=== PATIENT | male | born 1970 | race Caucasian/White ===

== ENCOUNTER → 2020-03-14 10:24 | Outpatient (BNVA) | payer OTHER, SELFPAY | PROVIDERS: PCP Internal Medicine; Referring Provider Internal Medicine; Visit Provider Internal Medicine Gastroenterology | DX: K22.10 Ulcer of esophagus without bleeding (principal) | CPT/HCPCS: 99212 ==

== ENCOUNTER 2020-06-16 12:48 | Day surgery (SDC) | payer OTHER, SELFPAY ==
--- NOTE | 2020-06-15 09:59 | P.CONAN_ITS ---
Documented by User: Shana Kruger 06/15/20 09:59 HPI - Anesthesia Eval Consult details Narrative: 50yo M for Upper Endoscopy [facility] Past Medical History Medical History (Updated 06/16/20 @ 14:55 by Alma Delia Yip) History of Yan's esophagus SUKHWINDER on CPAP Right knee pain Sleep disorder Family History Family History Father History of cancer Mother Hx of diabetes mellitus Surgical History Surgical History History of colonoscopy Hx of endoscopy Social History Social History Alcohol intake: never Smoking Status: Never smoker Use of substances other than those prescribed or required for medical reasons: No Advance Directives: No Advance Directives Information Provided: Yes Meds Allergies Allergy/AdvReac Type Severity Reaction Status Date / Time No Known Allergies Allergy Verified 06/16/20 13:56 Home Medications Medication Instructions Recorded Confirmed Type famotidine 1 tab PO BEDTIME 05/05/20 05/05/20 History baclofen 1 tab PO TID 06/16/20 06/16/20 History doxepin 1 cap PO BEDTIME 06/16/20 06/16/20 History Exam Exam Date and Time: June 15, 2020 0959 Height,Weight and Vital Signs: Height 5 ft 7 in Assessment and Plan Assessment Anesthesia Assessment: Chart Reviewed Documented by User: Alma Delia Yip 06/16/20 15:02 [facility] Past Medical History Medical History (Updated 06/16/20 @ 14:55 by Alma Delia Yip) History of Yan's esophagus SUKHWINDER on CPAP Right knee pain Sleep disorder Family History Family History Father History of cancer Mother Hx of diabetes mellitus Family history of problems with anesthesia: No Surgical History Surgical History History of colonoscopy Hx of endoscopy History of Problems with Anesthesia: No Social History Social History Alcohol intake: never Smoking Status: Never smoker Use of substances other than those prescribed or required for medical reasons: No Advance Directives: No Advance Directives Information Provided: Yes Meds Allergies Allergy/AdvReac Type Severity Reaction Status Date / Time No Known Allergies Allergy Verified 06/16/20 13:56 Home Medications Medication Instructions Recorded Confirmed Type famotidine 1 tab PO BEDTIME 05/05/20 05/05/20 History baclofen 1 tab PO TID 06/16/20 06/16/20 History doxepin 1 cap PO BEDTIME 06/16/20 06/16/20 History Exam Height,Weight and Vital Signs: Vital Signs Temp Pulse Resp BP Pulse Ox 06/16/20 13:20 97.4 F 81 18 144/87 H 97 Airway Mallampati Class: IV TM Dist: >3cm Neck ROM: Full Heart: RRR Lungs: CTAB Assessment and Plan Assessment Anesthesia Assessment: Anesthesia Plan Discussed and Chart Reviewed Final Anesthetic Review NPO: Yes ASA Class: III Final Preanesthetic Review: No Changes in Pt Med Stat, Meds/Allgs Chart Reviewed, Consent Obtained/Reviewed and Anes Risks/Benef Reviewed Patient Risk: Intermediate Procedure Risk: Low Assessment/Block/Sedation in SS: Assess/Block/Sedation-SS Anesthetic Plan Anesthetic Plan: MAC: Disposition: Standard PACU
--- NOTE | 2020-06-16 13:18 | MHC.SHP ---
Pre-Procedural Eval Section B Chief Complaint: Ulcer of Esophagus Relevant Family History (Specify if Yes): No Relevant Social History: None Present Medications: see Short Stay Collaborative assessment Medical History: Significant History (obesity, esophagitis) History of Previous Operations: Relevant previous surgery/procedure and date(s) (EGD,colonoscopy) Allergies: Allergies Allergy/AdvReac Type Severity Reaction Status Date / Time No Known Allergies Allergy Verified 03/14/20 10:25 Review of Systems Sugical H&P ROS: Negative: Constitution, Cardiovascular, Respiratory, Neurological, Psychiatric, Hem-Onc, Allergic/Immunologic, Gastrointestinal, Genitourinary, Musculoskeletal, Integumentary, Endocrine and Eyes/Ears/Nose/Throat Exam Surgical H&P Exam: Normal: HEENT, Normal: Heart, Normal: Lungs, Normal: Extremities, Normal: Abdomen, Normal: Skin and Normal: Neurological Plan Diagnosis/Plan: Unchanged I have reviewed the history and physical and performed a pertinent physical examination on my patient. No changes have occurred unless specified.
--- NOTE | 2020-06-16 13:19 | PM.OP ---
Brief Operative Note Date of Service: 06/16/20 Pre-op diagnosis: hx of barretts, esophagitis Post-op diagnosis: same Procedure: see op note Surgeon: Muna Rocha MD Anesthesia: MAC Estimated blood loss (mL): 0 Condition: stable Disposition: PACU
--- NOTE | 2020-06-16 13:19 | W.PM.OPN ---
Operative Note Operative Note Date of Service: 06/16/20 Narrative: Procedure Description: EGD FLEXIBLE TRANSORAL UPPER GASTROINTESTINAL ENDOSCOPY UPPER ENDOSCOPY Consent: Indications for the procedure and potential complications of bleeding, perforation, reaction to medications and missed diagnosis were discussed with the patient and informed consent was obtained. Instrument: Olympus GIF H 190 J mid size upper endoscope Monitoring: Vital signs and clinical assessment, continuous EKG monitoring, Pulse oximetry, Carbon Dioxide monitoring and blood pressure monitoring were done throughout the procedure. Procedure: The patient was placed in the left lateral decubitis position and pre-procedure medications were administered and a bite block was placed. The endoscope was inserted into the mouth and advanced under direct vision to the third part of duodenum. A careful inspection was made as the upper endoscope was withdrawn including a retroflexed examination of the proximal stomach; Findings and interventions are described below. Findings: Larynx:normal Esophagus: GE junction at 39 cm, diaphragm hiatus at 41 cm, small sliding hiatal hernia noted, salmon ping tissue at GEJ consistent with mcmahon esophagus noted, slightly inflammed with superficial ulceration noted at the 9 o'clock position, bx taken Stomach: Normal gastric mucosa. Grade 2 flap valve on retroflexed examination of the cardia. Duodenum: Normal bulb and descending duodenum Intervention: Biopsies as noted above Impression/Findings: Ulcerated esophagitis Barretts esophagus small hiatal hernia PLAN: confirm compliance with PPI, if taking then may change to another PPI, might add carafate encourage diet, lifestyle modification, weight loss repeat EGD in 3-6 months surgery may be another option for him with fundoplication or magnetic sphincter if he can lose some weight finally bariatric surgery with gastric bypass may help, sleeve would probably exacerbate reflux unfortunately
[2020-06-16 13:20] VITALS: BP 144/87; PULSE 81; RESP 18; TEMP 36.3; O2SAT 97; BMI 47.0
[2020-06-16] MEDS: Lactated Ringers 1,000 ML 100 ML IVCONT (13:48)
[2020-06-16 14:40] VITALS: BP 134/85; PULSE 92; RESP 16; TEMP 36.1; O2SAT 98
[2020-06-16 14:55] VITALS: BP 132/77; PULSE 81; RESP 17; TEMP 36.2; O2SAT 96
--- NOTE | 2020-06-17 09:24 | HO.POSTANES ---
Post Anesthesia Evaluation Post Anesthesia Evaluation Anesthesia: Monitored Mental Status: Awake Pain Control: Satisfactory Nausea/Vomiting: None Hydration: Adequate Anesthesia-Related Issues: No Anes. Related Issues
== END 2020-06-16 15:57 | disposition home or self-care (01) ==
PROVIDERS: PCP Internal Medicine; Visit Provider Internal Medicine Gastroenterology
PROC: 0DJ08ZZ Inspection of Upper Intestinal Tract, Via Natural or Artificial Opening Endoscopic (ICD-10-PCS; CPT 43235; principal; 2020-06-16 13:50)
DX: K22.10 Ulcer of esophagus without bleeding (principal); Z87.19 Personal history of other diseases of the digestive system; K44.9 Diaphragmatic hernia without obstruction or gangrene; G47.33 Obstructive sleep apnea (adult) (pediatric); Z79.899 Other long term (current) drug therapy
CPT/HCPCS: 43239; 88305; J3010

== ENCOUNTER → 2020-07-15 11:38 | Outpatient (BNVA) | payer OTHER, SELFPAY | PROVIDERS: PCP Internal Medicine; Visit Provider Internal Medicine Gastroenterology ==

== ENCOUNTER → 2020-08-17 09:17 | Outpatient (BNVA) | payer OTHER, SELFPAY | PROVIDERS: PCP Internal Medicine; Visit Provider Dietitian, Registered ==

== ENCOUNTER 2020-09-28 | Outpatient (REF) | payer OTHER, SELFPAY ==
[2020-09-22 11:42] VITALS: BMI 49.3
--- NOTE | 2020-09-27 10:13 | P.CONAN_ITS ---
HPI - Anesthesia Eval Consult details Narrative: 50yo M for Upper Endoscopy s/p EGD with TIVA 05/2020 [facility] Active Problems Active Problems: All Active Problems (Updated 07/15/20 @ 12:01 by Muna Rocha MD) Erosive esophagitis (Acute) Obesity (Acute) Sleep disorder (Acute) Right knee pain (Acute) SUKHWINDER on CPAP (Acute) Past Medical History Medical History History of Yan's esophagus SUKHWINDER on CPAP Right knee pain Sleep disorder Family History Family History Father History of cancer Mother Hx of diabetes mellitus Family history of problems with anesthesia: No Surgical History Surgical History (Updated 09/22/20 @ 11:41 by Prema Nam) History of colonoscopy History of esophagogastroduodenoscopy (EGD) Hx of endoscopy History of Problems with Anesthesia: No Social History Social History (Updated 07/15/20 @ 11:37 by María Marvin CMA) Household Members: None Alcohol intake: never Smoking Status: Never smoker Current occupational status: employed Current occupation: self-employed Meds Allergies Allergy/AdvReac Type Severity Reaction Status Date / Time No Known Allergies Allergy Verified 09/22/20 11:40 Home Medications Medication Instructions Recorded Confirmed Last Taken Type famotidine 1 tab PO BEDTIME 05/05/20 09/22/20 Unknown History baclofen 1 tab PO TID 06/16/20 09/22/20 Unknown History doxepin 1 cap PO BEDTIME 06/16/20 09/22/20 Unknown History Exam Exam Date and Time: September 27, 2020 1013 Height,Weight and Vital Signs: Height 5 ft 7 in Weight 142.882 kg Assessment and Plan Assessment Anesthesia Assessment: Chart Reviewed
== END 2020-09-28 00:01 ==
LOC: HO.PAT
PROVIDERS: PCP Internal Medicine; Visit Provider Dietitian, Registered
DX: E66.9 Obesity, unspecified (principal); K22.10 Ulcer of esophagus without bleeding; G47.33 Obstructive sleep apnea (adult) (pediatric); Z99.89 Dependence on other enabling machines and devices
CPT/HCPCS: 97803

== ENCOUNTER → 2020-10-11 08:25 | Outpatient (BNVA) | payer OTHER, SELFPAY | PROVIDERS: PCP Internal Medicine; Visit Provider Internal Medicine Gastroenterology ==

== ENCOUNTER → 2021-02-14 10:16 | Outpatient (BNVA) | payer OTHER, SELFPAY | PROVIDERS: PCP Internal Medicine; Visit Provider Internal Medicine Gastroenterology ==

== ENCOUNTER 2023-05-15 12:03 | Day surgery (SDC) | payer OTHER, SELFPAY ==
--- NOTE | 2023-05-15 12:32 | HO.ANESPROP2 ---
[facility] Active Problems Active Problems: All Active Problems (Updated 01/31/23 @ 06:52 by Muna Rocha MD) Arthritis of knee (Acute) Obesity (Acute) Erosive esophagitis (Acute) Sleep disorder (Acute) Right knee pain (Acute) SUKHWINDER on CPAP (Acute) Past Medical History Medical History (Updated 01/31/23 @ 06:52 by Muna Rocha MD) ADHD (attention deficit hyperactivity disorder) Arthritis Sleep disorder Right knee pain SUKHWINDER on CPAP History of Yan's esophagus Family History Family History Father History of cancer Mother Hx of diabetes mellitus Family history of problems with anesthesia: No Surgical History Surgical History (Updated 03/21/21 @ 11:04 by Sasha Lund, LALITHA) History of esophagogastroduodenoscopy (EGD) History of esophagogastroduodenoscopy (EGD) Hx of endoscopy History of colonoscopy History of Problems with Anesthesia: No Social History Social History (Updated 03/21/21 @ 11:05 by Sasha Lund RN) Household Members: None Alcohol intake: never Patient Tobacco Use Status: Never used Tobacco Advance Directives: No Advance Directives Information Provided: Yes Current occupational status: employed Current occupation: self-employed Meds Allergies Allergy/AdvReac Type Severity Reaction Status Date / Time No Known Allergies Allergy Verified 03/21/21 11:05 Home Medications Medication Instructions Recorded Confirmed Last Taken Type baclofen 20 mg tablet 1 tab PO TID 06/16/20 03/21/21 Unknown History doxepin 10 mg capsule 1 cap PO BEDTIME 06/16/20 03/21/21 Unknown History dextroamphetamine-amphetamine ER 1 cap PO QAM 10/11/20 03/21/21 Unknown History 10 mg 24hr capsule,extend release fluticasone propionate 50 1 spray intranasal BID PRN Nasal 10/11/20 03/21/21 Unknown History mcg/actuation nasal Congestion spray,suspension gabapentin 300 mg capsule 300 mg PO BEDTIME PRN Pain 10/11/20 03/21/21 Unknown History lidocaine HCl 2 % mucosal solution 15 ml PO Q3H PRN 10/11/20 Unknown History ibuprofen 200 mg tablet (Advil) 200 mg PO Q6H PRN Pain 03/21/21 03/21/21 Unknown History Exam Airway Mallampati Class: III TM Dist: >3cm Neck ROM: Full Heart: rrr Lungs: cta Assessment and Plan Assessment Anesthesia Assessment: Anesthesia Plan Discussed and Chart Reviewed Final Anesthetic Review Family History of Problems with Anesthesia: No History of Problems with Anesthesia: No NPO: Yes ASA Class: III Final Preanesthetic Review: No Changes in Pt Med Stat, Meds/Allgs Chart Reviewed and Consent Obtained/Reviewed Patient Risk: Intermediate Procedure Risk: Low Anesthetic Plan Anesthetic Plan: MAC: Disposition: Standard PACU
[2023-05-15 13:02] VITALS: BP 153/97; PULSE 76; RESP 18; TEMP 36.1; O2SAT 95
[2023-05-15 13:05] VITALS: BMI 51.4
[2023-05-15] MEDS: Lactated Ringers 1,000 ML 50 ML IVCONT (13:09)
--- NOTE | 2023-05-15 13:28 | P.HPSUR_ITS ---
Pre-Procedural Eval Section A Date of Service: 05/15/23 Section B Chief Complaint: Ulcer of esophagus without bleeding Relevant Family History (Specify if Yes): No Relevant Social History: None Present Medications: see Short Stay Collaborative assessment Medical History: Significant History (ADHD (attention deficit hyperactivity disorder) Arthritis Sleep disorder Right knee pain SUKHWINDER on CPAP History of Yan's esophagus) History of Previous Operations: Relevant previous surgery/procedure and date(s) ( History of esophagogastroduodenoscopy (EGD) History of esophagogastroduod enoscopy (EGD) Hx of endoscopy History of colonoscopy) Allergies: Allergies Allergy/AdvReac Type Severity Reaction Status Date / Time No Known Allergies Allergy Verified 03/21/21 11:05 Review of Systems Sugical H&P ROS: Negative: Constitution, Cardiovascular, Respiratory, Neuro logical, Psychiatric, Hem-Onc, Allergic/Immunologic, Gastrointestinal, Genitourinary, Musculoskeletal, Integumentary, Endocrine and Eyes/Ears/Nose/Throat Exam Surgical H&P Exam: Normal: HEENT, Normal: Heart, Normal: Lungs, Normal: Extremities, Normal: Abdomen, Normal: Skin and Normal: Neurological Plan Diagnosis/Plan: Unchanged I have reviewed the history and physical and performed a pertinent physical examination on my patient. No changes have occurred unless specified. Time Spent With Patient Time: Total time managing care of this patient today ____ minutes.
--- NOTE | 2023-05-15 13:50 | W.PM.OPN ---
Operative Note Operative Note Date of Service: 05/15/23 Narrative: Procedure Description: EGD Indication: [] Anesthesia: MAC FLEXIBLE TRANSORAL UPPER GASTROINTESTINAL ENDOSCOPY UPPER ENDOSCOPY Consent: Indications for the procedure and potential complications of bleeding, perforation, reaction to medications and missed diagnosis were discussed with the patient and informed consent was obtained. Instrument: Olympus GIF H 190 J mid size upper endoscope Monitoring: Vital signs and clinical assessment, continuous EKG monitoring, Pulse oximetry, Carbon Dioxide monitoring and blood pressure monitoring were done throughout the procedure. Procedure: The patient was placed in the left lateral decubitis position and pre-procedure medications were administered and a bite block was placed. The endoscope was inserted into the mouth and advanced under direct vision to the third part of duodenum. A careful inspection was made as the upper endoscope was withdrawn including a retroflexed examination of the proximal stomach; Findings and interventions are described below. Findings: Larynx:normal Esophagus: GE junction at 39 cm, diaphragm hiatus at 42 cm, small sliding hiatal hernia noted 3 cm, bogginess and erythema with congestion at GEJ, bx taken, as well as from distal and proximal esophagus Stomach: Normal gastric mucosa. Grade 2 flap valve on retroflexed examination of the cardia. Duodenum: Normal bulb and descending duodenum Intervention: Biopsies as noted above Impression/Findings: esophagitis--mild, moderate small hiatal hernia PLAN: confirm compliance with PPI, encourage diet, lifestyle modification, weight loss repeat EGD in 2-3 yrs
[2023-05-15 13:56] VITALS: BP 164/106; PULSE 85; RESP 16; TEMP 36.4; O2SAT 96
[2023-05-15 14:18] VITALS: BP 143/99; PULSE 91; RESP 18; TEMP 36.1; O2SAT 98
== END 2023-05-15 14:43 | disposition home or self-care (01) ==
PROVIDERS: PCP Family Medicine; Visit Provider Internal Medicine Gastroenterology
PROC: 0DJ08ZZ Inspection of Upper Intestinal Tract, Via Natural or Artificial Opening Endoscopic (ICD-10-PCS; CPT 43235; principal; 2023-05-15 14:40)
DX: K20.80 Other esophagitis without bleeding (principal); K44.9 Diaphragmatic hernia without obstruction or gangrene; Z87.19 Personal history of other diseases of the digestive system; E66.9 Obesity, unspecified; M17.11 Unilateral primary osteoarthritis, right knee; M25.561 Pain in right knee; F90.9 Attention-deficit hyperactivity disorder, unspecified type; G47.33 Obstructive sleep apnea (adult) (pediatric); Z99.89 Dependence on other enabling machines and devices; Z79.899 Other long term (current) drug therapy
CPT/HCPCS: 43239; 88305; J2250; J2704

== ENCOUNTER → 2023-05-15 12:03 | Outpatient (BNV) | payer OTHER, SELFPAY | PROVIDERS: PCP Family Medicine; Visit Provider Internal Medicine Gastroenterology | DX: K20.90 Esophagitis, unspecified without bleeding (principal) | CPT/HCPCS: 43239 ==